=== PATIENT | female | born 2000 | race American Indian/Alaskan Native ===

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

== ENCOUNTER 2022-06-22 05:27 | Emergency (ER) | payer MEDICAID, OTHER ==
[2022-06-22 05:42] VITALS: BP 143/91; PULSE 95
[2022-06-22] MEDS ORDERED: cefTRIAXone 1 GM, Lidocaine 1% 2.1 ML IM ONE ×2 (05:50)
[2022-06-22] MEDS ORDERED: Phenazopyridine 95 MG Tab PO ONE (05:59)
[2022-06-28 07:47] LABS: C.TRACHOMATIS BY TMA Positive (Negative); N.GONORRHOEAE BY TMA Negative (Negative)
== END 2022-06-22 06:12 | disposition home or self-care (01) ==
LOC: DL.ED 05:27
DX: N39.0 Urinary tract infection, site not specified (principal); Z91.018 Allergy to other foods; Z87.891 Personal history of nicotine dependence
CPT/HCPCS: 36415; 81001; 81025; 87210; 87491; 87563; 87591; 96372; 99282; 99283; A9270; J0696

== ENCOUNTER 2024-02-02 20:54 | Emergency (ER) | payer MEDICAID, OTHER ==
[2024-02-02 21:20] LABS: BASOPHILS PERCENT AUTO 0.2 % (0.0-1.0); EOSINOPHILS PERCENT AUTO 0.8 % (1.0-3.0); HEMATOCRIT 43.4 % (37.0-47.0); HEMOGLOBIN 14.2 g/dL (12.0-16.0); LYMPHOCYTES PERCENT AUTO 10.4 % (20.5-50.1); MEAN CORPUSCULAR HEMOGLOBIN 27.5 pg (27.0-34.0); MEAN CORPUSCULAR HGB CONC 32.7 g/dL (33.0-35.0); MEAN CORPUSCULAR VOLUME 84.1 fL (80-100); MONOCYTES PERCENT AUTO 7.9 % (2-8); NEUTROPHILS PERCENT AUTO 80.7 % (42.2-75.2); PLATELET COUNT,PLT 275 10^3/uL (150-450); RED BLOOD CELL COUNT 5.16 10^6/uL (4.2-5.4); WHITE BLOOD CELL COUNT,WBC 14.7 10^3/uL (5.0-10.0)
[2024-02-02] MEDS: Famotidine 20 MG/2 ML SDV IVPUSH ONE (21:21)
[2024-02-02] MEDS: Sodium Chloride 0.9% 1,000 ML IV ONE (21:21)
[2024-02-02] MEDS: Ondansetron 4 MG/2 ML SDV IVPUSH ONE (21:22)
[2024-02-02 21:40] LABS: A/G RATIO 0.9; ALANINE AMINOTRANSFERASE,ALT 24 U/L (14-59); ALBUMIN 4.3 g/dL (3.4-5.0); ALKALINE PHOSPHATASE 91 U/L (46-116); ANION GAP 18.6 mEq/L (7-13); ASPARTATE AMNIOTRANSFERASE,AST 11 U/L (15-37); BILIRUBIN TOTAL 0.7 mg/dL (0.2-1.0); BLOOD UREA NITROGEN,BUN 15 mg/dL (7-18); BUN/CREATININE RATIO 14.9 (No establ ref range); CALCIUM 9.2 mg/dL (8.5-10.1); CARBON DIOXIDE,CO2 23 mmol/L (21-32); CHLORIDE,CL 106 mmol/L (98-107); CREATININE 1.01 mg/dL (0.55-1.02); EST CRCL DRUG DOSING (CG) 79.28 mL/min; ESTIMATED GFR 81 mL/min (>=60); ETHANOL BLOOD MEDICAL < 3 mg/dL (0); GLUCOSE RANDOM 107 mg/dL (70-99); LIPASE 21 U/L (16-77); POTASSIUM,K 3.6 mmol/L (3.5-5.1); SODIUM,NA 144 mmol/L (136-145)
[2024-02-02 21:47] LABS: HCG QUALITATIVE,SERUM NEGATIVE (NEGATIVE)
[2024-02-02 22:30] LABS: APPEARANCE,URINE CLEAR (CLEAR); BILIRUBIN,URINE NEGATIVE (NEGATIVE); COLOR,URINE YELLOW (YELLOW); GLUCOSE,URINE NEGATIVE (NEGATIVE); KETONES,URINE >=160 (NEGATIVE); LEUKOCYTE ESTERASE,URINE NEGATIVE (NEGATIVE); NITRITE,URINE NEGATIVE (NEGATIVE); OCCULT BLOOD,URINE MODERATE (NEGATIVE); PH,URINE 5.5 (5.0-9.0); PROTEIN,URINE 30 (NEGATIVE); UROBILINOGEN,URINE 0.2 mg/dL (0.2-1.0)
[2024-02-02 22:35] LABS: AMPHETAMINES,URINE NEGATIVE (NEGATIVE); BARBITURATES,URINE NEGATIVE (NEGATIVE); BENZODIAZEPINE,URINE NEGATIVE (NEGATIVE); MDMA (ECSTASY), URINE NEGATIVE (NEGATIVE); METHADONE,URINE NEGATIVE (NEGATIVE); METHAMPHETAMINES,URINE NEGATIVE (NEGATIVE); OPIATES,URINE NEGATIVE (NEGATIVE); OXYCODONE,URINE NEGATIVE (NEGATIVE); PHENCYCLIDINE,URINE NEGATIVE (NEGATIVE); TCA,URINE NEGATIVE (NEGATIVE)
[2024-02-02 22:39] LABS: BACTERIA,URINE FEW /HPF (0-FEW/HPF); EPITHELIAL CELLS,URINE MODERATE /HPF (NOT SEEN); MUCUS,URINE MODERATE /LPF (NOT SEEN); RBC,URINE 0-5 /HPF (0-5); WBC,URINE 0-5 /HPF (0-5/HPF)
[2024-02-02 23:08] VITALS: BP 130/64; PULSE 68
[2024-02-02] MEDS: Iopamidol 612 MG/ML 100 ML Bottle IVPUSH ONE (23:16)
[2024-02-02] MEDS: Promethazine 25 MG/ML SDV IM ONE (23:29)
[2024-02-03] MEDS: Sodium Chloride 0.9% 1,000 ML IV ONE
[2024-02-03] MEDS: Piperacillin/Tazobactam 4.5 GM in Sodium Chloride 0.9% 100 ML IV ONE
[2024-02-03 00:59] LABS: LACTIC ACID 1.2 mmol/L (0.4-2.0)
== END 2024-02-03 00:40 ==
LOC: DL.ED 20:54
DX: E86.0 Dehydration (principal); K35.80 Unspecified acute appendicitis; Z91.048 Other nonmedicinal substance allergy status; Z91.018 Allergy to other foods
CPT/HCPCS: 36415; 74177; 80053; 80305-QW; 80307; 81001; 83605; 83690; 83735; 84703; 85025; 87040; 87046; 96361; 96365; 96372; 96375; 99284; 99285-25; J2405; J2543; J2550; J3490; J7030; Q9967

== ENCOUNTER 2025-01-16 05:32 | Emergency (ER) | payer MEDICAID ==
[2025-01-16 05:48] VITALS: BP 141/75; PULSE 79
[2025-01-16] MEDS: Cyclobenzaprine 10 MG Tab PO ONE (06:09)
[2025-01-16] MEDS: Ketorolac 30 MG/ML SDV IM ONE (06:11)
[2025-01-16] MEDS: Take Home: Cyclobenzaprine 10 MG Tab, 4 Tab Pack PO ONE (06:45)
== END 2025-01-16 06:49 | disposition home or self-care (01) ==
LOC: DL.ED 05:32
DX: M51.26 Other intervertebral disc displacement, lumbar region (principal); F17.210 Nicotine dependence, cigarettes, uncomplicated; Z91.018 Allergy to other foods; Z91.048 Other nonmedicinal substance allergy status
CPT/HCPCS: 96372; 99283; A9270; J1885

== ENCOUNTER 2025-01-20 21:24 | Emergency (ER) | payer MEDICAID ==
[2025-01-20 21:35] VITALS: BP 151/72; PULSE 89
[2025-01-20 22:01] LABS: APPEARANCE,URINE CLEAR (CLEAR); BILIRUBIN,URINE NEGATIVE (NEGATIVE); COLOR,URINE YELLOW (YELLOW); GLUCOSE,URINE NEGATIVE (NEGATIVE); KETONES,URINE NEGATIVE (NEGATIVE); LEUKOCYTE ESTERASE,URINE SMALL (NEGATIVE); NITRITE,URINE NEGATIVE (NEGATIVE); OCCULT BLOOD,URINE TRACE-LYSED (NEGATIVE); PROTEIN,URINE NEGATIVE (NEGATIVE); UROBILINOGEN,URINE 0.2 mg/dL (0.2-1.0)
[2025-01-20] MEDS: Ketorolac 30 MG/ML SDV IM ONE (22:01)
[2025-01-20] MEDS: Acetaminophen/HYDROcodone 325-10 MG Tab PO ONE (22:01)
[2025-01-20] MEDS: Dexamethasone 6 MG TABLET PO ONE (22:01)
[2025-01-20 22:17] LABS: BACTERIA,URINE MODERATE /HPF (0-FEW/HPF); CALCIUM OXALATE CRYSTALS,URINE FEW /HPF (NOT SEEN); EPITHELIAL CELLS,URINE MANY /HPF (NOT SEEN)
[2025-01-20] MEDS: Take Home: Acetaminophen/HYDROcodone 325-5 MG, 5 Tab Pack PO ONE (22:36)
[2025-01-20] MEDS: Take Home: Sulfamethoxazole/Trimethoprim 800-160 MG Tab, 6 Tab Pack PO ONE (22:37)
== END 2025-01-20 22:45 | disposition home or self-care (01) ==
LOC: DL.ED 21:24
DX: M54.50 Low back pain, unspecified (principal); N39.0 Urinary tract infection, site not specified; Z88.8 Allergy status to other drugs, medicaments and biological substances; Z91.018 Allergy to other foods
CPT/HCPCS: 81001; 81025; 87086; 96372; 99283; 99284; A9270; J1885; J8540

== ENCOUNTER 2025-02-15 02:33 | Emergency (ER) | payer MEDICAID ==
[2025-02-15] MEDS ORDERED: Sodium Chloride 0.9% 10 ML Syringe FLUSH PRN (02:48)
[2025-02-15] MEDS ORDERED: Ondansetron 4 MG/2 ML SDV IVPUSH ONE (02:48)
[2025-02-15] MEDS: Ondansetron 4 MG Tab.DIS PO ONE (02:54)
[2025-02-15] MEDS: Lactated Ringers 1,000 ML IV ONE (03:08)
[2025-02-15 03:13] LABS: BASOPHILS PERCENT AUTO 0.2 % (0.0-1.0); EOSINOPHILS PERCENT AUTO 0.8 % (1.0-3.0); HEMATOCRIT 42.7 % (37.0-47.0); HEMOGLOBIN 13.4 g/dL (12.0-16.0); LYMPHOCYTES PERCENT AUTO 19.3 % (20.5-50.1); MEAN CORPUSCULAR HEMOGLOBIN 27.3 pg (27.0-34.0); MEAN CORPUSCULAR HGB CONC 31.4 g/dL (33.0-35.0); MEAN CORPUSCULAR VOLUME 87.1 fL (80-100); MONOCYTES PERCENT AUTO 6.3 % (2-8); NEUTROPHILS PERCENT AUTO 73.4 % (42.2-75.2); PLATELET COUNT,PLT 291 10^3/uL (150-450)
[2025-02-15] MEDS: Promethazine 25 MG/ML SDV IM ONE (03:20)
[2025-02-15 03:44] LABS: A/G RATIO 0.9; ALBUMIN 4.1 g/dL (3.4-5.0); BILIRUBIN TOTAL 0.3 mg/dL (0.2-1.0); BUN/CREATININE RATIO 15.5 (No establ ref range); CALCIUM 9.8 mg/dL (8.5-10.1); CREATININE 0.97 mg/dL (0.55-1.02); EST CRCL DRUG DOSING (CG) 81.86 mL/min; MAGNESIUM 2.3 mg/dL (1.8-2.4); PROTEIN TOTAL,TP 8.9 g/dL (6.4-8.2)
[2025-02-15 04:03] LABS: APPEARANCE,URINE SLIGHTLY CLOUDY (CLEAR); BILIRUBIN,URINE NEGATIVE (NEGATIVE); COLOR,URINE YELLOW (YELLOW); GLUCOSE,URINE NEGATIVE (NEGATIVE); KETONES,URINE 40 (NEGATIVE); LEUKOCYTE ESTERASE,URINE NEGATIVE (NEGATIVE); NITRITE,URINE NEGATIVE (NEGATIVE); OCCULT BLOOD,URINE TRACE-INTACT (NEGATIVE); PROTEIN,URINE NEGATIVE (NEGATIVE); UROBILINOGEN,URINE 0.2 mg/dL (0.2-1.0)
[2025-02-15] MEDS: Potassium Chloride 10 MEQ Tab.ER PO ONE (04:04)
[2025-02-15 04:15] LABS: BACTERIA,URINE FEW /HPF (0-FEW/HPF); EPITHELIAL CELLS,URINE FEW /HPF (NOT SEEN); MUCUS,URINE FEW /LPF (NOT SEEN); WBC,URINE 0-5 /HPF (0-5/HPF)
[2025-02-15 04:16] LABS: AMORPHOUS SEDIMENT,URINE MODERATE /HPF (NOT SEEN)
[2025-02-15] MEDS: Take Home: Ondansetron 4 MG Tab.DIS, 5 Tab Pack PO ONE (04:54)
[2025-02-15 05:04] VITALS: BP 126/81; PULSE 50
== END 2025-02-15 04:58 | disposition home or self-care (01) ==
LOC: DL.ED 02:33
DX: A08.4 Viral intestinal infection, unspecified (principal); E87.6 Hypokalemia; F17.210 Nicotine dependence, cigarettes, uncomplicated; Z88.8 Allergy status to other drugs, medicaments and biological substances; Z91.018 Allergy to other foods
CPT/HCPCS: 36415; 80053; 81001; 83690; 83735; 85025; 96360; 96372; 99284; A9270; J2550; J7120; Q0162

== ENCOUNTER 2025-06-05 02:37 | Emergency (ER) | payer MEDICAID ==
[2025-06-05] MEDS ORDERED: Sodium Chloride 0.9% 10 ML Syringe FLUSH PRN (03:08)
[2025-06-05] MEDS ORDERED: Lactated Ringers 1,000 ML IV SCH (03:15)
[2025-06-05] MEDS: Lactated Ringers 1,000 ML IV ONE (03:31)
[2025-06-05] MEDS: Ondansetron 4 MG/2 ML SDV IVPUSH ONE (03:31)
[2025-06-05 03:32] LABS: BASOPHILS PERCENT AUTO 0.2 % (0.0-1.0); EOSINOPHILS PERCENT AUTO 0.7 % (1.0-3.0); LYMPHOCYTES PERCENT AUTO 30.7 % (20.5-50.1); MONOCYTES PERCENT AUTO 8.4 % (2-8); NEUTROPHILS PERCENT AUTO 60.0 % (42.2-75.2); PLATELET COUNT,PLT 267 10^3/uL (150-450); RED BLOOD CELL COUNT 4.48 10^6/uL (4.2-5.4); WHITE BLOOD CELL COUNT,WBC 12.2 10^3/uL (5.0-10.0)
[2025-06-05 03:49] LABS: A/G RATIO 0.9; ALANINE AMINOTRANSFERASE,ALT 22.0 U/L (14-59); ASPARTATE AMNIOTRANSFERASE,AST 11.0 U/L (15-37); BILIRUBIN TOTAL 0.1 mg/dL (0.2-1.0); BLOOD UREA NITROGEN,BUN 13.0 mg/dL (7-18); CARBON DIOXIDE,CO2 28.0 mmol/L (21-32); CHLORIDE,CL 105.0 mmol/L (98-107); CREATININE 0.8 mg/dL (0.55-1.02); EST CRCL DRUG DOSING (CG) 103.26 mL/min; ESTIMATED GFR 107.0 mL/min (>=60); GLUCOSE RANDOM 107.0 mg/dL (70-99); POTASSIUM,K 3.4 mmol/L (3.5-5.1); PROTEIN TOTAL,TP 7.4 g/dL (6.4-8.2); SODIUM,NA 140.0 mmol/L (136-145)
[2025-06-05] MEDS: Take Home: Ondansetron 4 MG Tab.DIS, 5 Tab Pack PO ONE (05:51)
[2025-06-05 06:20] VITALS: BP 104/69; PULSE 64
== END 2025-06-05 05:51 | disposition home or self-care (01) ==
LOC: DL.ED 02:37
DX: K52.9 Noninfective gastroenteritis and colitis, unspecified (principal); E86.0 Dehydration; Z91.018 Allergy to other foods
CPT/HCPCS: 36415; 80053; 81025; 83690; 85025; 96361; 96374; 99284; J2405; J7120; Q0162

== ENCOUNTER 2025-06-25 15:45 | Emergency (ER) | payer MEDICAID ==
[2025-06-25] MEDS: Ondansetron 4 MG Tab.DIS PO ONE (16:20)
[2025-06-25] MEDS: Ketorolac 30 MG/ML SDV IM ONE (16:23)
[2025-06-25] MEDS: Dexamethasone 4 MG/ML SDV PO ONE (16:35)
[2025-06-25 16:38] LABS: PLATELET COUNT,PLT 205 10^3/uL (150-450); RED BLOOD CELL COUNT 4.57 10^6/uL (4.2-5.4); WHITE BLOOD CELL COUNT,WBC 9.0 10^3/uL (5.0-10.0)
[2025-06-25 16:46] LABS: BASOPHILS PERCENT AUTO 0.3 % (0.0-1.0); EOSINOPHILS PERCENT AUTO 0.7 % (1.0-3.0); LYMPHOCYTES PERCENT AUTO 23.6 % (20.5-50.1); MONOCYTES PERCENT AUTO 10.0 % (2-8); NEUTROPHILS PERCENT AUTO 65.4 % (42.2-75.2)
[2025-06-25 16:58] LABS: A/G RATIO 0.9; ALANINE AMINOTRANSFERASE,ALT 22.0 U/L (14-59); ASPARTATE AMNIOTRANSFERASE,AST 16.0 U/L (15-37); BILIRUBIN TOTAL 0.5 mg/dL (0.2-1.0); BLOOD UREA NITROGEN,BUN 16.0 mg/dL (7-18); CARBON DIOXIDE,CO2 23.0 mmol/L (21-32); CHLORIDE,CL 108.0 mmol/L (98-107); CREATININE 0.77 mg/dL (0.55-1.02); EST CRCL DRUG DOSING (CG) 103.12 mL/min; GLUCOSE RANDOM 98.0 mg/dL (70-99); POTASSIUM,K 3.5 mmol/L (3.5-5.1); PROTEIN TOTAL,TP 7.9 g/dL (6.4-8.2); SODIUM,NA 145.0 mmol/L (136-145)
[2025-06-25 16:59] LABS: ESTIMATED GFR 112.0 mL/min (>=60)
[2025-06-25] MEDS: Ondansetron 4 MG/2 ML SDV IVPUSH ONE (17:02)
[2025-06-25 17:10] LABS: EOSINOPHILS PERCENT MAN 1 % (1-3); LYMPHOCYTES PERCENT MAN 25 % (20-50); MONOCYTES PERCENT MAN 11 % (2-8); SEG NEUTROPHILS PERCENT MAN 63 % (42-75)
[2025-06-25 17:44] LABS: APPEARANCE,URINE CLOUDY (CLEAR); GLUCOSE,URINE NEGATIVE (NEGATIVE); OCCULT BLOOD,URINE LARGE (NEGATIVE)
[2025-06-25 17:57] LABS: EPITHELIAL CELLS,URINE MODERATE /HPF (NOT SEEN)
[2025-06-25 18:27] VITALS: BP 90/54; PULSE 54
== END 2025-06-25 18:26 | disposition home or self-care (01) ==
LOC: DL.ED 15:45
DX: M54.50 Low back pain, unspecified (principal); Z91.018 Allergy to other foods
CPT/HCPCS: 36415; 80053; 81001; 81025; 83735; 85025; 86140; 96361; 96372; 96374; 99283; A9270; J1885; J2405; J7030

== ENCOUNTER 2025-06-27 00:28 | Emergency (ER) | payer MEDICAID ==
[2025-06-27 00:52] LABS: PLATELET COUNT,PLT 209 10^3/uL (150-450); RED BLOOD CELL COUNT 4.39 10^6/uL (4.2-5.4); WHITE BLOOD CELL COUNT,WBC 10.8 10^3/uL (5.0-10.0)
[2025-06-27] MEDS: Ketorolac 30 MG/ML SDV IVPUSH ONE (00:53)
[2025-06-27 00:54] LABS: NEUTROPHILS PERCENT AUTO 67.1 % (42.2-75.2)
[2025-06-27 00:55] LABS: BASOPHILS PERCENT AUTO 0.4 % (0.0-1.0); EOSINOPHILS PERCENT AUTO 0.3 % (1.0-3.0); LYMPHOCYTES PERCENT AUTO 21.1 % (20.5-50.1); MONOCYTES PERCENT AUTO 11.1 % (2-8)
[2025-06-27 01:13] LABS: A/G RATIO 1.0; ALANINE AMINOTRANSFERASE,ALT 20.0 U/L (14-59); ASPARTATE AMNIOTRANSFERASE,AST 13.0 U/L (15-37); BILIRUBIN TOTAL 0.4 mg/dL (0.2-1.0); BLOOD UREA NITROGEN,BUN 11.0 mg/dL (7-18); CARBON DIOXIDE,CO2 29.0 mmol/L (21-32); CHLORIDE,CL 106.0 mmol/L (98-107); CREATININE 1.03 mg/dL (0.55-1.02); EST CRCL DRUG DOSING (CG) 77.09 mL/min; GLUCOSE RANDOM 79.0 mg/dL (70-99); POTASSIUM,K 3.5 mmol/L (3.5-5.1); PROTEIN TOTAL,TP 7.7 g/dL (6.4-8.2); SODIUM,NA 144.0 mmol/L (136-145)
[2025-06-27 01:14] LABS: ESTIMATED GFR 79.0 mL/min (>=60)
[2025-06-27 01:27] LABS: LYMPHOCYTES PERCENT MAN 22 % (20-50); MONOCYTES PERCENT MAN 11 % (2-8); SEG NEUTROPHILS PERCENT MAN 67 % (42-75)
[2025-06-27 02:01] LABS: APPEARANCE,URINE CLOUDY (CLEAR); GLUCOSE,URINE NEGATIVE (NEGATIVE); OCCULT BLOOD,URINE LARGE (NEGATIVE)
[2025-06-27 02:11] LABS: SQUAMOUS EPITHELIAL CELLS,UR MODERATE /HPF (NOT SEEN)
[2025-06-27] MEDS: Take Home: Sulfamethoxazole/Trimethoprim 800-160 MG Tab, 6 Tab Pack PO ONE (02:47)
[2025-06-27 03:01] VITALS: BP 114/75; PULSE 61
== END 2025-06-27 02:55 | disposition other institution (70) ==
LOC: DL.ED 00:28
DX: N13.2 Hydronephrosis with renal and ureteral calculous obstruction (principal); N30.01 Acute cystitis with hematuria; Z91.018 Allergy to other foods
CPT/HCPCS: 36415; 74176; 80053; 81001; 81025; 85025; 96361; 96374; 96375; 99284; A9270; J0690; J1885; J7030